=== PATIENT | female | born 1980 | race Two or more races ===

== ENCOUNTER 2022-05-19 13:23 | Emergency (ER) | payer MEDICAID ==
[~2022-05-19] VITALS: Ht 160 cm; Wt 74.8 kg
[2022-05-19] MEDS ORDERED: KETOROLAC TROMETHAMINE INJ 30 MG/ML VIAL ONE (14:29)
[2022-05-19] MEDS ORDERED: PROCHLORPERAZINE MALEATE 10 MG TABLET ONE (14:29)
[2022-05-19] MEDS ORDERED: diphenhydrAMINE HCL 50 MG CAPSULE ONE (14:29)
[2022-05-19] MEDS ORDERED: diphenhydrAMINE HCL 50 MG CAPSULE PO ONE (14:30)
[2022-05-19] MEDS ORDERED: PROCHLORPERAZINE MALEATE 10 MG TABLET PO ONE (14:30)
[2022-05-19] MEDS ORDERED: KETOROLAC TROMETHAMINE INJ 30 MG/ML VIAL IM ONE (14:30)
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
--- NOTE | 2022-05-19 14:55 | NUR ---
PT ON SUPINE AND RESTING
--- NOTE | 2022-05-19 15:28 | NUR ---
PT CLAIMS HEADACHE IS 08/20 AT PRESENT
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
[2022-05-19] MEDS ORDERED: IV NS 0.9% 1,000 ML IV ONE (16:00)
[2022-05-19] MEDS ORDERED: MORPHINE SULFATE INJ 2 MG/ML DISP.SYRIN IV ONE (16:00)
[2022-05-19] MEDS ORDERED: MORPHINE SULFATE INJ 4 MG/ML DISP.SYRIN ONE (16:06)
[2022-05-19 16:12] LABS: BASOPHILS % (AUTO) 0.6 % (0.0-2.0); EOSINOPHILS % (AUTO) 1.6 % (0.0-6.0); HEMATOCRIT 39 % (33-45); HEMOGLOBIN 13.1 g/dL (11.5-14.8); LYMPHOCYTES # (AUTO) 1.9 K/uL (0.8-4.8); LYMPHOCYTES % (AUTO) 31.6 % (20.0-44.0); MEAN CORPUSCULAR HGB CONC 34 g/dl (31.0-36.0); MEAN CORPUSCULAR VOLUME 88 fL (82-100); MONOCYTES # (AUTO) 0.4 K/uL (0.1-1.30); MONOCYTES % (AUTO) 6.2 % (2.0-12.0); NEUTROPHILS # (AUTO) 3.7 K/uL (1.8-8.9); PLATELET COUNT (AUTO) 312 K/uL (150-450); RED BLOOD CELL COUNT(AUTO) 4.43 MIL/uL (4.0-5.2); WHITE BLOOD COUNT (AUTO) 6.1 K/uL (4.3-11.0)
--- NOTE | 2022-05-19 16:15 | NUR ---
IV INSERTED LT AC 20G, BLD DRAWN AND SENT TO LAB
[2022-05-19 16:26] LABS: CALCIUM, SERUM 9.1 mg/dL (8.5-10.1); CREATININE 0.6 mg/dL (0.6-1.3); POTASSIUM 3.8 mmol/L (3.5-5.1)
[2022-05-19] MEDS ORDERED: METOCLOPRAMIDE HCL 10 MG/2 ML VIAL IV ONE (17:00)
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
[2022-05-19] MEDS ORDERED: METOCLOPRAMIDE HCL 10 MG/2 ML VIAL ONE (17:05)
[2022-05-19] MEDS ORDERED: METO-295 PO (17:30)
[2022-05-19 17:52] VITALS: BP 122/78
--- NOTE | 2022-05-19 17:52 | NUR ---
IV removed. Catheter intact and site benign. Pressure and 4x4 applied to site. No bleeding noted.Patient discharged to home in stable condition. Written and verbal after care instructions given. Patient verbalizes understanding of instruction.
== END 2022-05-19 17:53 | disposition home or self-care (01) ==
LOC: ER 13:38
DX: G43.909 Migraine, unspecified, not intractable, without status migrainosus (principal)
CPT/HCPCS: 99285; 96374; 70450; 96361; 96375; 85025; 80048; 84703; 36415; 96372; Q0164; Q0163; J2270; J2765; J1885; J7030

== ENCOUNTER 2022-07-16 06:17 | Emergency (ER) | payer MEDICAID ==
[~2022-07-16] VITALS: Ht 162.6 cm; Wt 69.9 kg
[~2022-07-16 06:17] MED LIST: METO-295 PO
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
--- NOTE | 2022-07-16 08:44 | NUR ---
benji came. per benji officers, [facility] alonso made aware.
[2022-07-16] MEDS ORDERED: ONDANSETRON HCL/PF 4 MG/2 ML VIAL IVP ONE (09:00)
[2022-07-16] MEDS ORDERED: ONDANSETRON HCL/PF 4 MG/2 ML VIAL ONE (09:00)
--- NOTE | 2022-07-16 09:06 | NUR ---
IV ACCESS ESTABLISHED 20G LEFT AC. BLOOD DRAWN AND SENT TO LAB.
[2022-07-16 09:28] LABS: BASOPHILS % (AUTO) 0.2 % (0.0-2.0); HEMATOCRIT 40 % (33-45); HEMOGLOBIN 13.4 g/dL (11.5-14.8); LYMPHOCYTES % (AUTO) 9.5 % (20.0-44.0); MEAN CORPUSCULAR HGB CONC 34 g/dl (31.0-36.0); MEAN CORPUSCULAR VOLUME 87 fL (82-100); MONOCYTES # (AUTO) 0.3 K/uL (0.1-1.30); MONOCYTES % (AUTO) 2.6 % (2.0-12.0); NEUTROPHILS # (AUTO) 9.2 K/uL (1.8-8.9); NEUTROPHILS % (AUTO) 87.7 % (43.0-81.0); PLATELET COUNT (AUTO) 351 K/uL (150-450); RED BLOOD CELL COUNT(AUTO) 4.58 MIL/uL (4.0-5.2); WHITE BLOOD COUNT (AUTO) 10.5 K/uL (4.3-11.0)
[2022-07-16 09:40] LABS: CALCIUM, SERUM 9.4 mg/dL (8.5-10.1); CREATININE 0.8 mg/dL (0.6-1.3); POTASSIUM 3.5 mmol/L (3.5-5.1)
[2022-07-16 09:45] LABS: ALBUMIN 4.3 g/dL (3.4-5.0); BILIRUBIN,DIRECT 0.1 mg/dL (0.0-0.2); BILIRUBIN,TOTAL 0.8 mg/dL (0.2-1.0); TOTAL PROTEIN, SERUM 8.6 g/dL (6.4-8.2)
[2022-07-16] MEDS ORDERED: METRONIDAZOLE 500 MG TABLET PO ONE (11:00)
[2022-07-16] MEDS ORDERED: AZITHROMYCIN 250 MG TABLET PO ONE (11:00)
[2022-07-16] MEDS ORDERED: CEFTRIAXONE 1 G VIAL IM ONE (11:00)
[2022-07-16] MEDS ORDERED: RALTEGRAVIR POTASSIUM 400 MG TABLET PO SCH (11:00)
[2022-07-16] MEDS ORDERED: CEFTRIAXONE 500 MG VIAL ONE (11:18)
[2022-07-16] MEDS ORDERED: AZITHROMYCIN 500 MG VIAL ONE (11:18)
[2022-07-16] MEDS ORDERED: METRONIDAZOLE 500 MG TABLET ONE (11:19)
[2022-07-16] MEDS ORDERED: AZITHROMYCIN 250 MG TABLET ONE (11:24)
--- NOTE | 2022-07-16 12:03 | NUR ---
urine collected and sent to lab
[2022-07-16 12:07] LABS: BILIRUBIN,URINE NEGATIVE (NEGATIVE); COLOR,URINE DARK YELLOW (YELLOW); LEUKOCYTE ESTERASE ,URINE NEGATIVE (NEGATIVE); NITRITE, URINE NEGATIVE (NEGATIVE); PROTEIN,URINE 1+ mg/dl (NEGATIVE); UGLUCOSE NEGATIVE (NEGATIVE); UROBILINOGEN,URINE 0.2 EU/dL (0.2)
[2022-07-16] MEDS ORDERED: RALT400T PO (12:07)
[2022-07-16] MEDS ORDERED: ONDA4TAB5 PO (12:07)
[2022-07-16] MEDS ORDERED: EMTR1TAB6 PO (12:07)
[2022-07-16 12:12] LABS: BACTERIA,URINE Rare /HPF (None Seen); SQUAMOUS EPITHELIAL CELL,UR Few /HPF (None Seen)
[2022-07-16] MEDS ORDERED: IBUPROFEN 600 MG TABLET ONE (12:13)
[2022-07-16] MEDS ORDERED: IBUPROFEN 600 MG TABLET PO ONE (12:30)
[2022-07-16 13:31] VITALS: BP 149/82
[2022-07-17] MEDS ORDERED: TENOFOVIR DISOPROXIL FUMARATE 300 MG TABLET PO SCH (11:00)
[2022-07-17] MEDS ORDERED: EMTRICITABINE 200 MG CAPSULE PO SCH (11:00)
[2022-07-17] MEDS ORDERED: EMTRICITABINE/TENOFOVIR 1 TAB PO SCH (11:00)
== END 2022-07-16 13:31 | disposition home or self-care (01) ==
LOC: ER 06:19
DX: S09.8XXA Other specified injuries of head, initial encounter (principal); M79.10 Myalgia, unspecified site; R11.0 Nausea; Z60.2 Problems related to living alone; Z79.899 Other long term (current) drug therapy; T76.21XA Adult sexual abuse, suspected, initial encounter; Y93.89 Activity, other specified; Y92.89 Other specified places as the place of occurrence of the external cause; Y99.8 Other external cause status
CPT/HCPCS: 99285; 96372; 96374; 70450; 85025; 80048; 87086; 83690; 80076; 84703; 81001; 36415; 80320; 80307; J0696; J2405; J0456; G0480